=== PATIENT | male | born 1965 ===

== ENCOUNTER 2017-05-11 08:32 | Emergency (ER) | payer OTHER ==
[2017-05-11 08:37] VITALS: BP 151/81; PULSE 82; TEMP 98; O2SAT 98
[2017-05-11 08:38] VITALS: BMI 24.9
--- NOTE | 2017-05-11 08:51 | ED PDOC ---
HPI: General Adult Time Seen by Provider: 05/11/17 08:45 History Per: Patient (Right sided neck pain x 1 week. Worse on mevent of neck to left side. No trauma. Denies fever. No weakness or parasthesias.) Onset/Duration Of Symptoms: Days (7) Current Symptoms Are (Timing): Still Present Severity: Mild Pain Scale Rating Of: 2 Past Medical History Vital Signs: Last Vital Signs Temp 98 F 05/11/17 08:37 Pulse 82 05/11/17 08:37 Resp BP 151/81 H 05/11/17 08:37 Pulse Ox 98 05/11/17 09:01 - Medical History PMH: Kidney Stones, Chronic Kidney Disease - Surgical History Surgical History: Cholecystectomy - Family History Family History: States: Unknown Family Hx - Home Medications Home Medications: Ambulatory Orders Medication Instructions Recorded Acetaminophen with Codeine 2 tab PO Q4H PRN #22 tab 01/24/16 [Tylenol with Codeine No. 3 300 mg-30 mg] Ibuprofen 600 mg PO Q8H PRN #60 tab 01/24/16 Guaifenesin/Pseudoephedrne HCl 1 tab PO DAILY PRN #30 ter 09/23/16 [Mucinex D 600 mg-60 mg] Promethazine HCl/Codeine 5 ml PO HS #80 ml 09/23/16 [Prometh-Codein 6.25-10 mg/5 ml] Lidocaine 2% Viscous 10 ml MM Q4H PRN #1 bottle 12/02/16 Cyclobenzaprine [Cyclobenzaprine 10 mg PO TID #10 tab 05/11/17 HCl] Naproxen [Naprosyn] 500 mg PO Q12H #20 tab 05/11/17 - Allergies Allergies/Adverse Reactions: Allergies Allergy/AdvReac Type Severity Reaction Status Date / Time No Known Allergies Allergy Verified 05/11/17 08:59 Review of Systems Constitutional: Negative for: Fever Musculoskeletal: Positive for: Neck Pain Neurological: Negative for: Weakness, Numbness Physical Exam - Physical Exam Appears: Positive for: Non-toxic, No Acute Distress Skin: Positive for: Normal Color, Warm, DRY Neck: Positive for: Normal, Supple, Pain On Movement Of Neck Neurologic/Psych: Positive for: Alert, Oriented. Negative for: Motor/Sensory Deficits - ECG O2 Sat by Pulse Oximetry: 98 Disposition - Clinical Impression Clinical Impression: Osteoarthritis cervical spine - Patient ED Disposition Is Patient to be Admitted: No Counseled Patient/Family Regarding: Studies Performed, Diagnosis, Need For Followup, Rx Given - Disposition Referrals: [facility] [Outside] Disposition: Routine/Home Disposition Time: 09:14 Condition: FAIR Prescriptions: Cyclobenzaprine [Cyclobenzaprine HCl] 10 mg PO TID #10 tab Naproxen [Naprosyn] 500 mg PO Q12H #20 tab Instructions: Osteoarthritis (ED)
--- NOTE | 2017-05-11 12:44 | RAD ---
PROCEDURE: Cervical Spine Radiographs. Three standard views of the cervical spine performed. Study is somewhat limited due to partial obscuration of the tip of the odontoid by overlying occiput in the open-mouth projection. HISTORY: Pain. COMPARISON: No prior FINDINGS: BONES: No evidence of acute compression fractures nor retropulsed fragments. Vertebral bodies exhibit normal stature. Slight posterior subluxation C5 over C6 exacerbated by a prominent osteophyte arising from the posterior inferior corner of the C5 segment. . Facets normally aligned. DISC SPACES: Multilevel degenerative spondylosis. Small anterior and posterior osteophyte formation seen at several levels. SOFT TISSUES: Normal. No prevertebral soft tissue swelling. OTHER FINDINGS: None. IMPRESSION: No acute fractures given the limitations on this exam. Mild multilevel degenerative spondylosis
== END 2017-05-11 09:34 | disposition home or self-care (01) ==
LOC: H.ER 08:32
DX: M47.9 Spondylosis, unspecified (principal); Z87.442 Personal history of urinary calculi; N18.9 Chronic kidney disease, unspecified

== ENCOUNTER 2017-08-10 07:46 | Emergency (ER) | payer OTHER ==
[2017-08-10 07:46] VITALS: BMI 24.9
[2017-08-10 07:51] VITALS: BP 158/94; TEMP 97.9; O2SAT 98
[2017-08-10 07:54] VITALS: PULSE 78; RESP 20
--- NOTE | 2017-08-10 08:04 | ED PDOC ---
HPI: Abdomen Time Seen by Provider: 08/10/17 07:51 Chief Complaint (Nursing): Abdominal Pain Additional Complaint(s): Patient is a 51 y/o M with of renal stones, presenting with 2 week history of suprapubic pain. He reports that the pain has become more frequent so he presented to the ED. He reports suprapubic pain is worse when straining with urination. Denies dysuria. Denies constipation/diarrhea, nausea/vomiting, penile discharge, chest pain, shortness of breath or fever. Past Medical History Vital Signs: Last Vital Signs Temp 97.9 F 08/10/17 07:50 Pulse 78 08/10/17 07:50 Resp 20 08/10/17 07:50 BP 158/94 H 08/10/17 07:50 Pulse Ox 98 08/10/17 10:06 - Medical History PMH: Kidney Stones, Chronic Kidney Disease - Surgical History Surgical History: Cholecystectomy - Family History Family History: States: Unknown Family Hx - Home Medications Home Medications: Ambulatory Orders Medication Instructions Recorded Acetaminophen with Codeine 2 tab PO Q4H PRN #22 tab 01/24/16 [Tylenol with Codeine No. 3 300 mg-30 mg] Ibuprofen 600 mg PO Q8H PRN #60 tab 01/24/16 Guaifenesin/Pseudoephedrne HCl 1 tab PO DAILY PRN #30 ter 09/23/16 [Mucinex D 600 mg-60 mg] Promethazine HCl/Codeine 5 ml PO HS #80 ml 09/23/16 [Prometh-Codein 6.25-10 mg/5 ml] Lidocaine 2% Viscous 10 ml MM Q4H PRN #1 bottle 12/02/16 Cyclobenzaprine [Cyclobenzaprine 10 mg PO TID #10 tab 05/11/17 HCl] Naproxen [Naprosyn] 500 mg PO Q12H #20 tab 05/11/17 Cephalexin [cephalexin] 500 mg PO BID #14 cap 08/10/17 - Allergies Allergies/Adverse Reactions: Allergies Allergy/AdvReac Type Severity Reaction Status Date / Time No Known Allergies Allergy Verified 08/10/17 07:50 Review of Systems ROS Statement: Except As Marked, All Systems Reviewed And Found Negative Constitutional: Negative for: Fever, Chills Cardiovascular: Negative for: Chest Pain, Palpitations Respiratory: Negative for: Cough, Shortness of Breath Gastrointestinal: Positive for: Abdominal Pain (suprapubic). Negative for: Nausea, Vomiting, Diarrhea, Constipation Genitourinary Male: Negative for: Dysuria, Frequency, Penile Discharge, Scrotal Pain, Penile Pain Neurological: Negative for: Weakness, Numbness, Headache Physical Exam - Physical Exam Appears: Positive for: Well, Non-toxic Head Exam: Positive for: ATRAUMATIC, NORMAL INSPECTION, NORMOCEPHALIC Skin: Positive for: Normal Color Eye Exam: Positive for: Normal appearance Cardiovascular/Chest: Positive for: Regular Rate, Rhythm Respiratory: Positive for: Normal Breath Sounds. Negative for: Rhonchi, Stridor , Wheezing Gastrointestinal/Abdominal: Positive for: Soft. Negative for: Tenderness, Distended Male Genital Exam: Positive for: other (uncircumsized penis, no penile discharge ). Negative for: no hernia, inguinal tenderness, scrotum tenderness (R), scrotum tenderness (L), testicular tenderness (R), testicular tenderness (L) Back: Positive for: Normal Inspection. Negative for: L CVA Tenderness, R CVA Tenderness, Vertebral Tenderness, Decreased ROM, Muscle Spasm Extremity: Positive for: Normal ROM Neurologic/Psych: Positive for: Alert, Oriented, Gait (steady) - Laboratory Results Result Diagrams: 08/10/17 08:28 08/10/17 08:28 - ECG O2 Sat by Pulse Oximetry: 98 Medical Decision Making Medical Decision Making: Patient is refusing pain medication. Labs grossly normal. UA shows negative nitrates but trace leukocytes and small blood. 9:49 CT Abdomen/Pelvis: FINDINGS: LOWER THORAX: Unremarkable. LIVER: MILD HEPATOMEGALY. THE LIVER MEASURES APPROXIMATELY 19.3 CM CRANIOCAUDAL. NO MASS. SMOOTH CONTOUR. NO BILIARY DILATATION. GALLBLADDER AND BILE DUCTS: Status post cholecystectomy. PANCREAS: Unremarkable. No gross lesion or ductal dilatation. SPLEEN: Unremarkable. ADRENALS: Unremarkable. No mass. KIDNEYS AND URETERS: Coarse calculi in the lower pole collecting system and pelvis of the right kidney, unchanged compared to prior examination. Approximately 10 mm calculus in the left renal pelvis. Again, unchanged from prior. VASCULATURE: Unremarkable. No aortic aneurysm. BOWEL: Unremarkable. No obstruction. No gross mural thickening. APPENDIX: Unremarkable. Normal appendix. PERITONEUM: Unremarkable. No free fluid. No free air. LYMPH NODES: Unremarkable. No enlarged lymph nodes. BLADDER: Unremarkable. REPRODUCTIVE: Normal prostate BONES: No acute fracture. OTHER FINDINGS: None. IMPRESSION: Extensive right renal calculi and 10 mm left renal calculus, all nonobstructing. No renal mass or hydronephrosis. No change from 09/23/2016. Patient continues to refuse pain medicaiton. CT shows stones are unchanged. Gonorrhea and chlamydia sent. Will prescribe antibiotics for uti. Patient is afebrile with soft NT/ND abdomen. Disposition - Clinical Impression Clinical Impression: UTI (urinary tract infection) - Disposition Referrals: Noe Abreu MD [Medical Doctor] - Disposition: Routine/Home Disposition Time: 10:03 Condition: GOOD Additional Instructions: Follow-up with PMD within 2 days. Follow-up with urology. Return to ED if condition worsens. Take full course of antibiotics. Prescriptions: Cephalexin [cephalexin] 500 mg PO BID #14 cap Instructions: Urinary Tract Infection in Men (ED) Forms: [facility] (Latvian), [employer] (Niuean) Print Language: MALAGASY
[2017-08-10] MEDS ORDERED: Sodium Chloride 0.9% 1,000 ML IV SCH (08:15)
[2017-08-10 08:33] LABS: BASO % 0.7 % (0.0-2.0); EOS # 0.3 K/uL (0.0-0.7); EOS % 4.1 % (0.0-4.0); HEMATOCRIT 44.8 % (35.0-51.0); LYMPH % 28.5 % (20.0-40.0); MEAN CELL VOLUME 86.5 fl (80.0-94.0); MEAN CORPUSCULAR HEMOGLOBIN 28.5 pg (27.0-31.0); MEAN PLATELET VOLUME 8.7 fl (7.2-11.7); MONO # 0.7 K/uL (0.0-0.8); MONO % 9.6 % (0.0-10.0); NEUT # 3.9 K/uL (1.8-7.0); NEUT % 57.1 % (50.0-75.0); NRBC % 0.2 % (0.0-0.0); RED CELL DISTRIBUTION WIDTH 14.6 % (11.5-14.5); WHITE BLOOD COUNT 6.9 K/uL (4.8-10.8)
[2017-08-10 08:51] LABS: ALB/GLOB RATIO 1.3 (1.0-2.1); ALKALINE PHOSPHATASE 84 U/L (38-126); ALT/SGPT 59 U/L (21-72); AST/SGOT 44 U/L (17-59); BILIRUBIN,TOTAL 0.7 mg/dl (0.2-1.3); BLOOD UREA NITROGEN 14 mg/dl (9-20); CARBON DIOXIDE 22 mmol/L (22-30); CHLORIDE 107 mmol/L (98-107); GFR AFRICAN-AMERICAN > 60; GLUCOSE,RANDOM 111 mg/dL (75-110); LIPASE 105 U/L (23-300); SODIUM 139 mmol/l (132-148); TOTAL PROTEIN 7.8 G/DL (6.3-8.2)
[2017-08-10 08:52] LABS: POTASSIUM 4.8 MMOL/L (3.6-5.0)
[2017-08-10 09:13] LABS: RBC URINE 11 /hpf (0-3); URINE BILIRUBIN NEGATIVE (NEGATIVE); URINE BLOOD SMALL (NEGATIVE); URINE COLOR YELLOW (YELLOW); URINE GLUCOSE (UA) NEG (Normal); URINE KETONE NEGATIVE (NEGATIVE); URINE LEUKOCYTE ESTERASE SMALL Leu/uL (Negative); URINE PROTEIN NEGATIVE (NEGATIVE); URINE UROBILINOGEN 0.2-1.0 mg/dL (0.2-1.0); WBC URINE 4 /hpf (0-5)
--- NOTE | 2017-08-10 09:51 | CT ---
PROCEDURE: CT Abdomen and Pelvis without intravenous contrast HISTORY: hx of renal stones, with suprapubic pain COMPARISON: 09/23/2016 TECHNIQUE: Without contrast.. Contrast Dose: 0 Radiation dose: Total exam DLP = 740.29 mGy-cm. This CT exam was performed using one or more of the following dose reduction techniques: Automated exposure control, adjustment of the mA and/or kV according to patient size, and/or use of iterative reconstruction technique. FINDINGS: LOWER THORAX: Unremarkable. LIVER: MILD HEPATOMEGALY. THE LIVER MEASURES APPROXIMATELY 19.3 CM CRANIOCAUDAL. NO MASS. SMOOTH CONTOUR. NO BILIARY DILATATION. GALLBLADDER AND BILE DUCTS: Status post cholecystectomy. PANCREAS: Unremarkable. No gross lesion or ductal dilatation. SPLEEN: Unremarkable. ADRENALS: Unremarkable. No mass. KIDNEYS AND URETERS: Coarse calculi in the lower pole collecting system and pelvis of the right kidney, unchanged compared to prior examination. Approximately 10 mm calculus in the left renal pelvis. Again, unchanged from prior. VASCULATURE: Unremarkable. No aortic aneurysm. BOWEL: Unremarkable. No obstruction. No gross mural thickening. APPENDIX: Unremarkable. Normal appendix. PERITONEUM: Unremarkable. No free fluid. No free air. LYMPH NODES: Unremarkable. No enlarged lymph nodes. BLADDER: Unremarkable. REPRODUCTIVE: Normal prostate BONES: No acute fracture. OTHER FINDINGS: None. IMPRESSION: Extensive right renal calculi and 10 mm left renal calculus, all nonobstructing. No renal mass or hydronephrosis. No change from 09/23/2016.
== END 2017-08-10 10:33 | disposition home or self-care (01) ==
LOC: H.ER 07:46
DX: N39.0 Urinary tract infection, site not specified (principal); N20.0 Calculus of kidney
CPT/HCPCS: 74176; 80053; 81003; 83690; 85025; 87086; 87491; 87591; 96360; 99282; J7040

== ENCOUNTER 2018-06-08 08:34 | Emergency (ER) | payer OTHER ==
[2018-06-08 08:38] VITALS: BMI 26.6
--- NOTE | 2018-06-08 09:02 | ED PDOC ---
HPI: Abdomen <Amador Craig - Last Filed: 06/08/18 12:29> History Per: Patient History/Exam Limitations: language barrier Onset/Duration Of Symptoms: Days, Intermittent Episodes Severity: Moderate Pain Scale Rating Of: 7 Location Of Pain/Discomfort: Epigastric Quality Of Discomfort: Burning Associated Symptoms: Back Pain. denies: Fever, Chills, Nausea, Vomiting, Diarrhea <Cecilia Spangler - Last Filed: 06/08/18 18:31> Time Seen by Provider: 06/08/18 08:43 Chief Complaint (Nursing): Abdominal Pain Additional Complaint(s): CC: stomach pain HPI: 52 YO Male with PMHx of HLD, kidney stones presents to [facility] ED for abdominal pain. Pt states that the pain started about 7 days ago, intermittent episodes, pain is described as burning in nature, located in the epigastria, with occasional radiation to the back. Pt states that at times when he lies down there is some associated burning pain that radiates up his chest and at times pain is worse with inspiration. No nausea, vomiting, normal BM, last one this AM, associated weight loss, fever or chills. Denies chest pain, dyspnea, palpitations, n/v/d/c, dysuria, hematuria or urinary frequency. Sami speaking pt, [employer] used for translation; [id number] MD: [facility] PMHx: renal stones, HLD SurgHx: cholecystectomy SH: denies smoking, occasional ETOH use and denies illicit drug use FH: HTN Allergies: NKDA Meds: for HLD (Cecilia Spangler) Supervising Attending Note - Supervising Attending Note The Documented history was done by the: Physician Meal Miller The documented physical exam was done by the: Physician Meal Miller The documented procedures were done by the: Physician Meal Miller - Attestation: I have personally seen and examined this patient.: Yes I have fully participated in the care of the patient.: Yes I have reviewed all pertinent clinical information: Yes <Amador Craig - Last Filed: 06/08/18 12:29> <Cecilia Spangler - Last Filed: 06/08/18 18:31> - Notes: Notes:: Abd pain epigastric. no dizziness, weakness, chest pain, dyspnea, lower abd pain, testicular pain, back pain. (Amador Craig) Past Medical History Reviewed: Nursing Documentation, Vital Signs <Amador Craig - Last Filed: 06/08/18 12:29> - Medical History PMH: Kidney Stones - Surgical History Surgical History: Cholecystectomy - Family History Family History: States: Hypertension - Social History Current smoker - smoking cessation education provided: No Alcohol: None Drugs: Denies <Cecilia Spangler - Last Filed: 06/08/18 18:31> Vital Signs: Last Vital Signs Temp 97 F L 06/08/18 12:45 Pulse 78 06/08/18 12:45 Resp 19 06/08/18 12:45 BP 128/76 06/08/18 12:45 Pulse Ox 98 06/08/18 12:45 - Home Medications Home Medications: Ambulatory Orders Medication Instructions Recorded Acetaminophen with Codeine 2 tab PO Q4H PRN #22 tab 01/24/16 [Tylenol with Codeine No. 3 300 mg-30 mg] Ibuprofen 600 mg PO Q8H PRN #60 tab 01/24/16 Guaifenesin/Pseudoephedrne HCl 1 tab PO DAILY PRN #30 ter 09/23/16 [Mucinex D 600 mg-60 mg] Promethazine HCl/Codeine 5 ml PO HS #80 ml 09/23/16 [Prometh-Codein 6.25-10 mg/5 ml] Lidocaine 2% Viscous 10 ml MM Q4H PRN #1 bottle 12/02/16 Cyclobenzaprine [Cyclobenzaprine 10 mg PO TID #10 tab 05/11/17 HCl] Naproxen [Naprosyn] 500 mg PO Q12H #20 tab 05/11/17 Cephalexin [cephalexin] 500 mg PO BID #14 cap 08/10/17 Famotidine [Pepcid] 20 mg PO DAILY PRN #6 tab 06/08/18 Famotidine [Pepcid] 40 mg PO DAILY PRN 5 Days tab 06/08/18 - Allergies Allergies/Adverse Reactions: Allergies Allergy/AdvReac Type Severity Reaction Status Date / Time No Known Allergies Allergy Verified 06/08/18 08:43 Review of Systems Constitutional: Negative for: Fever, Chills, Weight loss Cardiovascular: Negative for: Chest Pain, Palpitations Respiratory: Negative for: Cough, Shortness of Breath Gastrointestinal: Positive for: Abdominal Pain. Negative for: Nausea, Vomiting , Diarrhea, Constipation Genitourinary Male: Negative for: Dysuria, Frequency, Hematuria Neurological: Negative for: Weakness <Cecilia Spangler - Last Filed: 06/08/18 18:31> Physical Exam - Physical Exam Cardiovascular/Chest: Positive for: Regular Rate, Rhythm Respiratory: Positive for: Normal Breath Sounds Gastrointestinal/Abdominal: Positive for: Tenderness (epigastric) Back: Positive for: Normal Inspection <CraigNadine warrenya Adrien - Last Filed: 06/08/18 12:29> - Physical Exam Appears: Positive for: No Acute Distress Skin: Positive for: Normal Color Eye Exam: Positive for: Normal appearance, EOMI Cardiovascular/Chest: Positive for: Regular Rate, Rhythm. Negative for: Murmur Respiratory: Positive for: Normal Breath Sounds. Negative for: Wheezing Gastrointestinal/Abdominal: Positive for: Bowel Sounds, Soft, Tenderness (to palpation of the epigastria ), Other (old estrellita scar noted, well healed. ). Negative for: Distended, Guarding, Rebound Back: Positive for: Normal Inspection. Negative for: L CVA Tenderness, R CVA Tenderness Extremity: Positive for: Normal ROM. Negative for: Tenderness, Pedal Edema Neurologic/Psych: Positive for: Alert, Oriented <Cecilia Spangler - Last Filed: 06/08/18 18:31> - Laboratory Results Result Diagrams: 06/08/18 09:40 06/08/18 09:40 Interpretation Of Abn Labs: no acute - ECG ECG: Positive for: Interpreted By Me, Viewed By Me ECG Rhythm: Positive for: Normal QRS, Normal ST Segment, Sinus Rhythm Pulse Ox Interpretation: Normal <CraigAmador warren - Last Filed: 06/08/18 12:29> - Laboratory Results Result Diagrams: 06/08/18 09:40 06/08/18 09:40 - ECG O2 Sat by Pulse Oximetry: 97 <Cecilia Spangler - Last Filed: 06/08/18 18:31> - Progress ED Course And Treament: 52 YO Male with abdominal pain, likely gastritis vs pancreatitis. -cbc, cmp, lipase -Udip -IVF, pepsid -EKG and trops Pt seen and reevaluated. Pain has resolved at this time. Blood work reviewed with patient, all normal and UA neg EKG normal sinus with no acute ST changes, normal rate. Trops x 1 neg. Pt to be d/c home with follow up with [facility] with Pepsid PO. Pt agrees with plan. (Cecilia Spangler) Disposition - Disposition Disposition: Routine/Home Disposition Time: 11:00 <Amador Craig - Last Filed: 06/08/18 12:29> - Disposition Disposition: Routine/Home <Cecilia Spangler - Last Filed: 06/08/18 18:31> - Clinical Impression Clinical Impression: Abdominal pain - Disposition Referrals: [facility] [Outside] - 06/11/18 Condition: STABLE Additional Instructions: Return if not better in 3 days. Prescriptions: Famotidine [Pepcid] 20 mg PO DAILY PRN #6 tab PRN Reason: Pain Famotidine [Pepcid] 40 mg PO DAILY PRN 5 Days tab PRN Reason: Pain, Moderate (4-7) Instructions: Stomach Ache and Stomach Upset Forms: [facility] (French) Print Language: BHUTANESE
[2018-06-08] MEDS ORDERED: Sodium Chloride 0.9% 1,000 ML IV STA (09:07)
[2018-06-08 09:53] LABS: BASO # 0.1 K/uL (0.0-0.2); BASO % 0.7 % (0.0-2.0); EOS # 0.3 K/uL (0.0-0.7); EOS % 3.6 % (0.0-4.0); HEMOGLOBIN 15.4 g/dL (12.0-18.0); LYMPH % 26.4 % (20.0-40.0); MEAN CELL VOLUME 85.1 fl (80.0-94.0); MEAN CORPUSCULAR HEMOGLOBIN 29.2 pg (27.0-31.0); MEAN CORPUSCULAR HGB CONC 34.3 g/dL (33.0-37.0); MEAN PLATELET VOLUME 8.8 fl (7.2-11.7); MONO # 0.8 K/uL (0.0-0.8); MONO % 10.4 % (0.0-10.0); NEUT # 4.5 K/uL (1.8-7.0); NEUT % 58.9 % (50.0-75.0); RBC 5.28 Mil/uL (4.40-5.90); RED CELL DISTRIBUTION WIDTH 14.7 % (11.5-14.5); WHITE BLOOD COUNT 7.7 K/uL (4.8-10.8)
[2018-06-08 09:59] LABS: ALB/GLOB RATIO 1.2 (1.0-2.1); ALBUMIN 4.8 g/dL (3.5-5.0); ALT/SGPT 45 U/L (21-72); AST/SGOT 37 U/L (17-59); BLOOD UREA NITROGEN 23 mg/dl (9-20); GFR AFRICAN-AMERICAN > 60; GFR NON-AFRICAN AMERICAN 54; LIPASE 133 U/L (23-300)
[2018-06-08 12:46] VITALS: BP 128/76; PULSE 78; RESP 19; TEMP 97
[2018-06-08 18:31] VITALS: O2SAT 97
--- NOTE | 2018-06-11 14:01 | CARD ---
APPROVED REPORT Date of service: 06/08/2018 EKG Measurement Heart [id number] <Conclusion> Normal sinus rhythm Normal ECG
== END 2018-06-08 12:55 | disposition home or self-care (01) ==
LOC: H.ER 08:34
DX: R10.9 Unspecified abdominal pain (principal); E78.5 Hyperlipidemia, unspecified; Z87.442 Personal history of urinary calculi; Z82.49 Family history of ischemic heart disease and other diseases of the circulatory system; Z90.49 Acquired absence of other specified parts of digestive tract
CPT/HCPCS: 80053; 83690; 84484; 85025; 93005; 96374; 99282; J7030

== ENCOUNTER 2018-07-08 08:50 | Emergency (ER) | payer MEDICAID, OTHER ==
[2018-07-08 08:56] VITALS: BMI 28.3
[2018-07-08 09:13] VITALS: RESP 19
[2018-07-08] MEDS ORDERED: Albuterol-Ipratrop 3 mg / 0.5 (3 ml) UD INH STA (09:27)
--- NOTE | 2018-07-08 09:37 | ED PDOC ---
HPI: SOB/CHF/COPD Time Seen by Provider: 07/08/18 09:15 Chief Complaint (Nursing): Shortness Of Breath Chief Complaint (Provider): SOB History Per: Patient, Family, Junior Project Manager (Requests family member to interpret) History/Exam Limitations: no limitations Onset/Duration Of Symptoms: Days (2) Additional Complaint(s): Pt reports SOB X 2 days, worse with ambulation. Denies fever, cough, CP, palpitations, orthopnea, recent travel. Past Medical History Reviewed: Nursing Documentation, Vital Signs Vital Signs: Last Vital Signs Temp 98.6 F 07/08/18 08:54 Pulse 75 07/08/18 08:54 Resp 19 07/08/18 09:13 BP 143/69 07/08/18 08:54 Pulse Ox 98 07/08/18 09:39 - Medical History PMH: Hypercholesterolemia, Kidney Stones - Surgical History Surgical History: Cholecystectomy - Family History Family History: States: Unknown Family Hx, Hypertension - Living Arrangements Living Arrangements: With Family - Social History Current smoker - smoking cessation education provided: No Alcohol: None - Home Medications Home Medications: Ambulatory Orders Medication Instructions Recorded Acetaminophen with Codeine 2 tab PO Q4H PRN #22 tab 01/24/16 [Tylenol with Codeine No. 3 300 mg-30 mg] RX: Ibuprofen 600 mg PO Q8H PRN #60 tab 01/24/16 Guaifenesin/Pseudoephedrne HCl 1 tab PO DAILY PRN #30 ter 09/23/16 [Mucinex D 600 mg-60 mg] Promethazine HCl/Codeine 5 ml PO HS #80 ml 09/23/16 [Prometh-Codein 6.25-10 mg/5 ml] RX: Lidocaine 2% Viscous 10 ml MM Q4H PRN #1 bottle 12/02/16 Cyclobenzaprine [Cyclobenzaprine 10 mg PO TID #10 tab 05/11/17 HCl] Naproxen [Naprosyn] 500 mg PO Q12H #20 tab 05/11/17 Cephalexin [cephalexin] 500 mg PO BID #14 cap 08/10/17 Famotidine [Pepcid] 20 mg PO DAILY PRN #6 tab 06/08/18 RX: Famotidine [Pepcid] 40 mg PO DAILY PRN 5 Days tab 06/08/18 RX: Albuterol 0.083% [Albuterol 3 ml IH Q6H PRN #30 neb 07/08/18 0.083% Inhal Elenita (2.5 mg/3 ml) UD] RX: Albuterol HFA [Ventolin HFA 90 2 puff IH [id number] PRN #1 bottle 07/08/18 mcg/actuation (8 g)] RX: Nebulizer [Compact Compressor 1 dev XX PRN PRN #1 dev 07/08/18 Nebulizer] - Allergies Allergies/Adverse Reactions: Allergies Allergy/AdvReac Type Severity Reaction Status Date / Time No Known Allergies Allergy Verified 06/08/18 08:43 Review of Systems Constitutional: Negative for: Fever, Chills Cardiovascular: Negative for: Chest Pain, Palpitations Respiratory: Positive for: Shortness of Breath. Negative for: Cough, Sputum, Wheezing Gastrointestinal: Negative for: Nausea, Vomiting, Abdominal Pain, Diarrhea Genitourinary Male: Negative for: Dysuria, Hematuria Skin: Negative for: Rash, Lesions Neurological: Negative for: Headache, Dizziness Physical Exam - Reviewed Nursing Documentation Reviewed: Yes Vital Signs Reviewed: Yes - Physical Exam Appears: Positive for: Well, No Acute Distress (Speaking full sentences) Skin: Positive for: Normal Color, Warm, Dry Eye Exam: Positive for: Normal appearance, EOMI, PERRL Cardiovascular/Chest: Positive for: Regular Rate, Rhythm Respiratory: Positive for: Normal Breath Sounds. Negative for: Decreased Breath Sounds, Accessory Muscle Use, Rales, Rhonchi, Wheezing, Respiratory Distress Gastrointestinal/Abdominal: Positive for: Normal Exam Back: Positive for: Normal Inspection Extremity: Positive for: Normal ROM. Negative for: Pedal Edema, Calf Tenderness , Swelling Neurologic/Psych: Positive for: Alert, Oriented - Laboratory Results Result Diagrams: 07/08/18 09:35 07/08/18 09:35 - ECG Interpretation Of ECG: NSR @ 77, LAD, no ST-T changes. O2 Sat by Pulse Oximetry: 98 Pulse Ox Interpretation: Normal Medical Decision Making Medical Decision Makin yo male with SOB. - labs - EKG - CXR - Albuterol/atrovent [facility] Accession No. : [id number] Patient Name / ID : MATT BHATT / [id number] Exam Date : 07/08/2018 09:44:50 ( Approved ) Study Comment : Sex / Age : M / 52Y Creator : Jaime Duckworth MD Dictator : Jaime Duckworth MD Machine Operator : Senior Qa Automation Engineer : Jaime Duckworth MD Approver2 : Report Date : 07/08/2018 10:54:57 My Comment : Date of service: 07/08/2018 HISTORY: SOB COMPARISON: Chest radiograph dated 09/23/2016. TECHNIQUE: Chest PA and lateral FINDINGS: LUNGS: No active pulmonary disease. PLEURA: No significant pleural effusion identified. No pneumothorax apparent. CARDIOVASCULAR: Normal. OSSEOUS STRUCTURES: No significant abnormalities. VISUALIZED UPPER ABDOMEN: Normal. OTHER FINDINGS: None. IMPRESSION: No active disease. Disposition - Clinical Impression Clinical Impression: Dyspnea - Patient ED Disposition Is Patient to be Admitted: No - Disposition Referrals: [facility] [place] [Outside] [facility] P. Tabatabai, [facility] [place] [Outside] Disposition: Routine/Home Disposition Time: 11:52 Condition: IMPROVED Prescriptions: RX: Albuterol HFA [Ventolin HFA 90 mcg/actuation (8 g)] 2 puff IH [id number] PRN # 1 bottle PRN Reason: Shortness Of Breath RX: Albuterol 0.083% [Albuterol 0.083% Inhal Elenita (2.5 mg/3 ml) UD] 3 ml IH Q6H PRN #30 neb PRN Reason: Shortness Of Breath RX: Nebulizer [Compact Compressor Nebulizer] 1 dev XX PRN PRN #1 dev PRN Reason: Shortness Of Breath Instructions: Shortness of Breath (Dyspnea) Forms: [facility] (Occitan) Print Language: DANISH
[2018-07-08 09:47] LABS: BASO % 0.4 % (0.0-2.0); EOS # 0.3 K/uL (0.0-0.7); EOS % 5.3 % (0.0-4.0); HEMOGLOBIN 14.5 g/dL (12.0-18.0); LYMPH # 1.8 K/uL (1.0-4.3); LYMPH % 32.3 % (20.0-40.0); MEAN CELL VOLUME 85.4 fl (80.0-94.0); MEAN PLATELET VOLUME 8.4 fl (7.2-11.7); MONO # 0.5 K/uL (0.0-0.8); MONO % 8.2 % (0.0-10.0); NEUT % 53.8 % (50.0-75.0); RBC 4.99 Mil/uL (4.40-5.90); RED CELL DISTRIBUTION WIDTH 14.6 % (11.5-14.5); WHITE BLOOD COUNT 5.5 K/uL (4.8-10.8)
[2018-07-08 09:49] LABS: PROTHROMBIN TIME 11.3 Seconds (9.8-13.1)
[2018-07-08 09:57] LABS: ALB/GLOB RATIO 1.3 (1.0-2.1); ALBUMIN 4.3 g/dL (3.5-5.0); ALT/SGPT 41 U/L (21-72); AST/SGOT 36 U/L (17-59); BLOOD UREA NITROGEN 15 mg/dl (9-20); CALCIUM 9.2 mg/dL (8.4-10.2); GFR NON-AFRICAN AMERICAN > 60
--- NOTE | 2018-07-08 10:56 | RAD ---
Date of service: 07/08/2018 HISTORY: SOB COMPARISON: Chest radiograph dated 09/23/2016. TECHNIQUE: Chest PA and lateral FINDINGS: LUNGS: No active pulmonary disease. PLEURA: No significant pleural effusion identified. No pneumothorax apparent. CARDIOVASCULAR: Normal. OSSEOUS STRUCTURES: No significant abnormalities. VISUALIZED UPPER ABDOMEN: Normal. OTHER FINDINGS: None. IMPRESSION: No active disease.
[2018-07-08 12:27] VITALS: BP 149/86; PULSE 69; TEMP 98.3; O2SAT 97
--- NOTE | 2018-07-09 08:10 | CARD ---
APPROVED REPORT Date of service: 07/08/2018 EKG Measurement Heart [id number] <Conclusion> Normal sinus rhythm Left axis deviation Abnormal ECG
== END 2018-07-08 12:30 | disposition home or self-care (01) ==
LOC: SUPCPDRO 08:50 → H.ER 08:50
DX: R06.00 Dyspnea, unspecified (principal); E78.00 Pure hypercholesterolemia, unspecified

== ENCOUNTER 2018-07-29 10:31 | Emergency (ER) | payer MEDICAID ==
[2018-07-29 10:52] VITALS: BMI 27.4
--- NOTE | 2018-07-29 11:45 | ED PDOC ---
HPI: Headache Time Seen by Provider: 07/29/18 10:55 Chief Complaint (Nursing): Headache Chief Complaint (Provider): Headache and Dizziness History Per: Patient Additional Complaint(s): 52 yo male, no PMH, presents to ED with complaints pain to the back of his neck and head, and dizziness x 1 week. Pt reports neck pain that radiates to front of his head with a "pressure band." no visual changes, no tinnitus, no chest pain, sob or abdominal pain Past Medical History Reviewed: Historical Data, Nursing Documentation, Vital Signs Vital Signs: Last Vital Signs Temp 98.4 F 07/29/18 10:52 Pulse 82 07/29/18 10:52 Resp 20 07/29/18 10:52 BP 155/91 H 07/29/18 10:52 Pulse Ox 98 07/29/18 10:52 - Medical History PMH: Hypercholesterolemia, Kidney Stones, Chronic Kidney Disease - Surgical History Surgical History: Cholecystectomy - Family History Family History: States: Unknown Family Hx, Hypertension - Living Arrangements Living Arrangements: With Family - Social History Current smoker - smoking cessation education provided: No Alcohol: Social Drugs: Denies - Home Medications Home Medications: Ambulatory Orders Medication Instructions Recorded Acetaminophen with Codeine 2 tab PO Q4H PRN #22 tab 01/24/16 [Tylenol with Codeine No. 3 300 mg-30 mg] Ibuprofen 600 mg PO Q8H PRN #60 tab 01/24/16 Guaifenesin/Pseudoephedrne HCl 1 tab PO DAILY PRN #30 ter 09/23/16 [Mucinex D 600 mg-60 mg] Promethazine HCl/Codeine 5 ml PO HS #80 ml 09/23/16 [Prometh-Codein 6.25-10 mg/5 ml] Lidocaine 2% Viscous 10 ml MM Q4H PRN #1 bottle 12/02/16 Cyclobenzaprine [Cyclobenzaprine 10 mg PO TID #10 tab 05/11/17 HCl] Naproxen [Naprosyn] 500 mg PO Q12H #20 tab 05/11/17 Cephalexin [cephalexin] 500 mg PO BID #14 cap 08/10/17 Famotidine [Pepcid] 20 mg PO DAILY PRN #6 tab 06/08/18 Famotidine [Pepcid] 40 mg PO DAILY PRN 5 Days tab 06/08/18 Albuterol 0.083% [Albuterol 0.083% 3 ml IH Q6H PRN #30 neb 07/08/18 Inhal Elenita (2.5 mg/3 ml) UD] Albuterol HFA [Ventolin HFA 90 2 puff IH [id number] PRN #1 bottle 07/08/18 mcg/actuation (8 g)] Nebulizer [Compact Compressor 1 dev XX PRN PRN #1 dev 07/08/18 Nebulizer] Cyclobenzaprine [Cyclobenzaprine 10 mg PO TID #20 tab 07/29/18 HCl] Ibuprofen [Motrin] 600 mg PO Q6 #20 tab 07/29/18 Meclizine [Meclizine*] 25 mg PO Q6 #30 tab 07/29/18 - Allergies Allergies/Adverse Reactions: Allergies Allergy/AdvReac Type Severity Reaction Status Date / Time No Known Allergies Allergy Verified 06/08/18 08:43 Review of Systems ROS Statement: Except As Marked, All Systems Reviewed And Found Negative Neurological: Positive for: Headache, Dizziness Physical Exam - Reviewed Nursing Documentation Reviewed: Yes Vital Signs Reviewed: Yes - Physical Exam Appears: Positive for: Well, Non-toxic, No Acute Distress Head Exam: Positive for: ATRAUMATIC, NORMAL INSPECTION, NORMOCEPHALIC Skin: Positive for: Normal Color, Warm, DRY Eye Exam: Positive for: EOMI, Normal appearance, PERRL ENT: Positive for: Normal ENT Inspection Neck: Positive for: Normal, Painless ROM Cardiovascular/Chest: Positive for: Regular Rate, Rhythm Respiratory: Positive for: CNT, Normal Breath Sounds Gastrointestinal/Abdominal: Positive for: Normal Exam, Soft Back: Positive for: Normal Inspection Extremity: Positive for: Normal ROM Neurologic/Psych: Positive for: Alert, Oriented - Laboratory Results Result Diagrams: 07/29/18 11:55 07/29/18 11:55 - ECG O2 Sat by Pulse Oximetry: 98 Medical Decision Making Medical Decision Making: Diagnostics ordered. Pt medicated with Fexeril, Reglan and Antivert pt reports feeling greatly improved on re-eval Labs resulted and reviewed with Pt. Head CT negative Pt asking to go home on re-eval, stable for discharge Disposition - Clinical Impression Clinical Impression: Tension headache, Vertigo - Patient ED Disposition Is Patient to be Admitted: No - Disposition Disposition: Routine/Home Disposition Time: 15:00 Condition: STABLE Prescriptions: Cyclobenzaprine [Cyclobenzaprine HCl] 10 mg PO TID #20 tab Ibuprofen [Motrin] 600 mg PO Q6 #20 tab Meclizine [Meclizine*] 25 mg PO Q6 #30 tab Instructions: Vertigo (a Type of Dizziness), Tension Headache Forms: [facility] (Turkmen)
[2018-07-29 12:00] LABS: BASO % 0.5 % (0.0-2.0); EOS # 0.2 K/uL (0.0-0.7); EOS % 1.7 % (0.0-4.0); HEMOGLOBIN 15.6 g/dL (12.0-18.0); LYMPH # 2.1 K/uL (1.0-4.3); LYMPH % 24.1 % (20.0-40.0); MEAN CELL VOLUME 84.2 fl (80.0-94.0); MEAN CORPUSCULAR HEMOGLOBIN 28.8 pg (27.0-31.0); MEAN CORPUSCULAR HGB CONC 34.1 g/dL (33.0-37.0); MEAN PLATELET VOLUME 8.3 fl (7.2-11.7); MONO # 0.7 K/uL (0.0-0.8); MONO % 8.2 % (0.0-10.0); NEUT # 5.8 K/uL (1.8-7.0); NEUT % 65.5 % (50.0-75.0); NRBC % 0.1 % (0.0-0.0); RBC 5.43 Mil/uL (4.40-5.90); RED CELL DISTRIBUTION WIDTH 14.7 % (11.5-14.5); WHITE BLOOD COUNT 8.8 K/uL (4.8-10.8)
[2018-07-29 12:29] LABS: ALB/GLOB RATIO 1.3 (1.0-2.1); ALBUMIN 4.7 g/dL (3.5-5.0); ALT/SGPT 51 U/L (21-72); AST/SGOT 32 U/L (17-59); BLOOD UREA NITROGEN 13 mg/dl (9-20); CALCIUM 9.8 mg/dL (8.4-10.2); GFR NON-AFRICAN AMERICAN > 60
--- NOTE | 2018-07-29 12:45 | CT ---
Date of service: 07/29/2018 PROCEDURE: CT HEAD WITHOUT CONTRAST. HISTORY: dizzy, headache COMPARISON: None available. TECHNIQUE: Axial computed tomography images were obtained through the head/brain without intravenous contrast. Radiation dose: Total exam DLP = mGy-cm. This CT exam was performed using one or more of the following dose reduction techniques: Automated exposure control, adjustment of the mA and/or kV according to patient size, and/or use of iterative reconstruction technique. FINDINGS: HEMORRHAGE: No intracranial hemorrhage. BRAIN: No mass effect or edema. No atrophy or chronic microvascular ischemic changes. VENTRICLES: Unremarkable. No hydrocephalus. CALVARIUM: Unremarkable. PARANASAL SINUSES: Unremarkable as visualized. No significant inflammatory changes. MASTOID AIR CELLS: Unremarkable as visualized. No inflammatory changes. OTHER FINDINGS: None. IMPRESSION: Normal CT of the Head.
[2018-07-29 14:25] VITALS: BP 140/89; PULSE 70; RESP 15; TEMP 98.1
[2018-07-29 14:47] VITALS: O2SAT 98
--- NOTE | 2018-07-30 10:04 | CARD ---
APPROVED REPORT Date of service: 07/29/2018 EKG Measurement Heart [id number] <Conclusion> Normal sinus rhythm Normal ECG
== END 2018-07-29 14:23 | disposition home or self-care (01) ==
LOC: H.ER 10:31
DX: G44.209 Tension-type headache, unspecified, not intractable (principal); R42 Dizziness and giddiness; E78.00 Pure hypercholesterolemia, unspecified
CPT/HCPCS: 70450; 80053; 84484; 85025; 93005; 96374; 96375; 99285; J1885; J2765